=== PATIENT | male | born 1990 | race Two or more races ===

== ENCOUNTER 2019-03-24 10:24 | Emergency (ER) | payer BC, OTHER ==
[~2019-03-24] VITALS: Ht 172.7 cm; Wt 95.0 kg
[2019-03-24 10:40] VITALS: BP 133/100
== END 2019-03-24 11:22 | disposition home or self-care (01) ==
LOC: ED 11:16
DX: H10.021 Other mucopurulent conjunctivitis, right eye (principal)
CPT/HCPCS: 99283